=== PATIENT | female | born 1980 | race Caucasian/White ===

== ENCOUNTER 2020-10-18 08:04 | Emergency (ER) | payer BC, SELFPAY ==
[~2020-10-18] VITALS: Ht 157.5 cm; Wt 86.2 kg
[2020-10-18 08:05] VITALS: Ht 157.5 cm; Wt 86.2 kg
[2020-10-18 09:26] VITALS: BP 101/67
[2020-10-18 12:50] LABS: microscopic required? YES; urine erythrocyte 2+ (NEGATIVE)
== END 2020-10-18 12:30 | disposition home or self-care (01) ==
LOC: ED 08:04
PROVIDERS: Emergency Medicine
DX: N10 Acute pyelonephritis (principal); Z90.89 Acquired absence of other organs; Z98.890 Other specified postprocedural states; Z88.0 Allergy status to penicillin; Z88.1 Allergy status to other antibiotic agents
CPT/HCPCS: 87804

== ENCOUNTER 2020-11-21 08:12 | Emergency (ER) | payer SELFPAY ==
[~2020-11-21] VITALS: Ht 167.6 cm; Wt 87.1 kg
[2020-11-21 08:20] VITALS: Ht 167.6 cm; Wt 87.1 kg
[2020-11-21 08:50] LABS: BASOPHIL % 0.7 % (0.2-1.3); PLATELET COUNT 280 x10^3mcL (179-408); RED CELL DISTRIBUTION WIDTH 14.3 % (12.3-17.7)
[2020-11-21 08:58] LABS: CARBON DIOXIDE 23.7 mmol/L (21-32); CHLORIDE SERUM 104 mmol/L (98-107); GFR1 > 60 mL/min; GLUCOSE SERUM 122 mg/dL (74-106); POTASSIUM SERUM 3.5 mmol/L (3.5-5.1); SODIUM SERUM 139 mmol/L (136-145)
[2020-11-21 09:07] LABS: ALBUMIN 3.9 g/dL (3.4-5.0); ALKALINE PHOSPHATASE 82 U/L (46-116); ALT/SGPT 34 U/L (14-59); AST/SGOT 24 U/L (15-37); BILIRUBIN TOTAL 0.3 mg/dL (0.20-1.00)
[2020-11-21] MEDS ORDERED: MOT600 PO (10:00)
[2020-11-21] MEDS ORDERED: ULTRAM50 MG PO (10:00)
[2020-11-21 10:18] VITALS: BP 154/76
== END 2020-11-21 10:18 | disposition home or self-care (01) ==
LOC: ED 08:12
PROVIDERS: Emergency Medicine
DX: N20.0 Calculus of kidney (principal); Z88.1 Allergy status to other antibiotic agents; Z88.0 Allergy status to penicillin; Z90.49 Acquired absence of other specified parts of digestive tract; Z98.890 Other specified postprocedural states
CPT/HCPCS: J1885; J7030